=== PATIENT | male | born 1950 | race Caucasian/White ===

== ENCOUNTER → 2016-10-28 | Outpatient (CLI) | payer OTHER ==
[~2016-10-28] VITALS: Ht 172.7 cm; Wt 81.6 kg
[~2016-10-28] MED LIST: ASPIRIN EC81 M1 PO; BUPRENORPHIN-N1 EACH SL; DEMEROL50 MG PO; EFFEXOR XR75 MG PO; MEDROLDOSEPACK PO; METHADONE HCL5 MG PO; NABUMETONE 500500 M1 PO; NABUMETONE 750750 M1 PO; NAPROSYN500 MG PO; NEURONTIN 300300 M1 PO; RELAFEN500 MG PO; REQUIP5 MG PO; SUBOXONE 12 MG1 EACH SL; SUBOXONE 8 MG-1 EAC1 SL; SUBOXONE 8 MG-1 EAC2 SL; SUBOXONE 8 MG-1 EAC3 SL; Suboxone 8 Mg-2 Mg T SL
--- NOTE | ~2016-10-28 | HPC ---
[facility] [place] [address] PAIN MANAGEMENT CONSULTATION Name: SHYANN DANIELSON [facility] [id number] Admission: 10/28/16 Attend Phys: Clement Barcenas DO Discharge: Date of : 49 Report #: [id number] THIS REPORT FOR: //name// CC: TARA physician/PCP Clement Barcenas DATE OF SERVICE: 10/28/2016 The patient is a 66-year-old gentleman well known to pain clinic, typically treated for cervical radiculopathy, chronic pain syndrome, axial back pain requiring complex medication management. Comorbidities include hepatitis C. The patient was last seen in pain clinic 08/08/2016, continued on baseline medication including Suboxone 8/2 t.i.d. Last urine drug screen 04/28/2016 was positive for prescribed medication. The patient has history of hepatitis C. 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 He continues to attend NA meetings. He is not having problems with daytime somnolence, mental acuity changes, constipation, no concerning issues regarding habituation or "craving." Comorbidities include retinitis pigmentosa and a component of glaucoma. He does have 2 lesions on the right side of his face 1 pre and 1 postauricular. They are irregularly shaped, dark and actually, the postauricular lesion has a small eschar. I strongly recommend he follow up with Dermatology regarding this. PHYSICAL EXAMINATION: Otherwise relatively unchanged, a 66-year-old gentleman, BMI is 27.4 kilograms per meter squared. Blood pressure is 119/75, pulse 65, respirations are 15. Cervical range of motion is modestly limited. Upper extremity strength is symmetric and has slight positive Lhermitte's on the left. Rises from chair using armrests. Gait is tandem. Has a component of bilateral lumbar radiculopathy. We reviewed the fact that opiate medications are being used to provide analgesia adequate to support activities of daily living, not attempting to achieve a specific pain score on the 0-10 Visual Analog Scale. The current opiate medications are providing sufficient analgesia to allow the patient to participate in activities of daily living. The patient is not exhibiting any aberrant behavior suggestive of drug diversion. The patient is not having any adverse reactions to medications. The patient is not suffering from daytime somnolence or mental acuity changes. The patient is managing opiate-induced constipation with appropriate pyuq-ynm-poecush agents and dietary considerations. The patient was counseled on concern for caution with operating a motor vehicle while using opiate medications. A physical exam was performed and the patient's functional status was evaluated. [address] [address] PAIN MANAGEMENT CONSULTATION Name: SHYANN DANIELSON Cassi [facility] #: [facility] [id number] Admission: 10/28/16 Attend Phys: Clement Barcenas DO Discharge: Date of : 49 Report #: [id number] All patients with back pain were advised against the bed rest greater than 4 days and were advised to return to normal activities. Pain score assessment was noted and the treatment plan was reviewed with the patient. All current medications, both prescribed and OTC were reviewed and reconciled on the electronic medical record. Tobacco screening was accomplished and smoking cessation was advised when indicated. BMI was noted and diet/exercise modification was recommended for all patients following outside normal parameters. I reviewed with the patient today their responsibilities to safeguard prescription medications, reviewed their responsibility to utilize medications only as prescribed by the physician. They are to seek and receive pain medications only from 1 physician group ( [facility]). They are to use 1 pharmacy and keep the clinic informed if they change pharmacies. Their responsibilities include making followup visits in a timely fashion and to avoid abrupt discontinuation of medication usage. Their responsibilities further include bringing their medications (bottles from the pharmacy with residual pills) to the visit for possible confirmation of pill counts and the patient understands it is their responsibility to submit to random drug screens to ensure both that the medications prescribed are present, and that no other controlled substances are present. All prescriptions provided today were generated electronically. ASSESSMENT AND RECOMMENDATIONS: Symptomatic cervical radiculopathy, axial back pain, lumbar radiculopathy, chronic pain syndrome requiring complex medication management in a gentleman who had prior had opiate habituation concerns, he has been stable on Suboxone 8/2 t.i.d. He is attending NA meetings regularly. Was counseled regarding smoking cessation. Referred to Dermatology for concerning lesions on the right side of his head. Follow up in 3 months for reevaluation. <ELECTRONICALLY SIGNED> By: Clement Barcenas DO 10/31/16 0806 [id number] Clement Barcenas DO /nt
== END ==
LOC: PAIN 07:21
DX: M54.12 Radiculopathy, cervical region (principal); M54.16 Radiculopathy, lumbar region; G89.4 Chronic pain syndrome; H40.9 Unspecified glaucoma; B19.20 Unspecified viral hepatitis C without hepatic coma; F17.200 Nicotine dependence, unspecified, uncomplicated

== ENCOUNTER → 2017-04-27 | Outpatient (CLI) | payer OTHER ==
[~2017-04-27] VITALS: Ht 170.2 cm; Wt 76.8 kg
[~2017-04-27] MED LIST changes: +XANAX 0.5 MG0.5 M1 PO
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
[2017-04-27 10:03] VITALS: BP 130/79
== END | disposition home or self-care (01) ==
LOC: PAIN 07:01
DX: M47.26 Other spondylosis with radiculopathy, lumbar region (principal); M54.12 Radiculopathy, cervical region; G89.4 Chronic pain syndrome; Z79.899 Other long term (current) drug therapy; B19.20 Unspecified viral hepatitis C without hepatic coma; M48.06 Spinal stenosis, lumbar region; F17.290 Nicotine dependence, other tobacco product, uncomplicated

== ENCOUNTER → 2017-05-11 | Outpatient (CLI) | payer OTHER ==
[~2017-05-11] VITALS: Ht 172.7 cm; Wt 77.2 kg
[~2017-05-11] MED LIST changes: +SKELAXIN 800 M800 M1 PO; +TRAMADOL 50 MG50 MG PO
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
[2017-05-11 09:41] VITALS: BP 142/77
== END | disposition home or self-care (01) ==
LOC: PAIN 06:09
DX: Z76.0 Encounter for issue of repeat prescription (principal); G89.29 Other chronic pain; M19.042 Primary osteoarthritis, left hand; M19.041 Primary osteoarthritis, right hand; H35.52 Pigmentary retinal dystrophy; F17.210 Nicotine dependence, cigarettes, uncomplicated; Z79.891 Long term (current) use of opiate analgesic; Z88.6 Allergy status to analgesic agent; Z79.82 Long term (current) use of aspirin

== ENCOUNTER → 2017-07-28 | Outpatient (CLI) | payer OTHER ==
[~2017-07-28] VITALS: Ht 170.2 cm; Wt 76.2 kg
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
[2017-07-28 13:46] VITALS: BP 157/94
[2017-07-28 13:53] VITALS: BP 157/94
== END ==
LOC: PAIN 06:56
DX: M54.12 Radiculopathy, cervical region (principal); M15.0 Primary generalized (osteo)arthritis; Z86.69 Personal history of other diseases of the nervous system and sense organs; Z79.899 Other long term (current) drug therapy

== ENCOUNTER → 2017-10-30 | Outpatient (CLI) | payer OTHER ==
[~2017-10-30] VITALS: Ht 170.2 cm; Wt 74.6 kg
[~2017-10-30] MED LIST changes: +CELEXA20 MG PO; +LIORESAL 10 MG10 MG PO; +POTASSIUM20 PO; +VITAMIN B-12500 MCG PO
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
[2017-10-30 10:39] VITALS: BP 132/70
== END ==
LOC: PAIN 07:25
DX: M19.042 Primary osteoarthritis, left hand (principal); M19.041 Primary osteoarthritis, right hand; M17.0 Bilateral primary osteoarthritis of knee; M54.12 Radiculopathy, cervical region; G89.4 Chronic pain syndrome; Z79.899 Other long term (current) drug therapy

== ENCOUNTER → 2018-08-31 | Outpatient (CLI) | payer OTHER ==
[~2018-08-31] VITALS: Ht 172.7 cm; Wt 77.4 kg
[~2018-08-31] MED LIST changes: +MIRTAZAPINE7.5 MG PO
[2018-08-31 10:15] VITALS: BP 124/69
--- NOTE | 2018-08-31 10:22 | NUR ---
Pain Clinic Assessment: 1. History of Osteoarthritis: ALL OVER History of Rheumatoid Arthritis: Not Applicable 2. Height: 5 ft. 8 in. 172.7 cm. Weight: 170.6 lb. oz. 77.384 kg. Patient's BMI: 25.9 3. Vital Signs: BP: 124/69 Pulse: 86 Resp: 16 Temp: 02 Sat: 97 ECG Mon: 4. Pain Intensity: 8 5. Fall Risk: Dizziness: N Needs help standing or walking: N Fallen in the last 3 months: N Fall risk comments: 6. Patient on Blood Thinner: None 7. History of Hypertension: N 8. Opioid Therapy greater than 6 weeks: Y Opiate Contract Signed: 04/28/16 9. Risk Assessment Tool Provided: MOD RISK 10. Functional Assessment Tool: 58/ 11. Recreational Drug Use: Unknown Drug Type: Tobacco Use: Light Tobacco Smoker Tobacco Type: Amount or Packs/day: How Many Years: Alcohol Use: No Frequency: Quant:
--- NOTE | 2018-09-03 07:45 | HPC ---
[facility] [place] [address] PAIN MANAGEMENT CONSULTATION Name: SHYANN DANIELSON Room #: REG [facility]#: [id number] Admission: 08/31/18 Attend Phys: Gilma Munoz Discharge: Date of : 49 Report #: [id number] THIS REPORT FOR: //name// CC: Gilma Munoz [facility] physician/PCP DATE OF SERVICE: 08/31/2018 CHIEF COMPLAINT: Chronic low back pain, hand pain, neck pain. HISTORY OF PRESENT ILLNESS: This is a 68-year-old gentleman that has been followed in the pain clinic for quite some time for his chronic pain issues. The patient tells me today that he has pain in his hands, his feet, his neck, his back, his hips and his knees. Most recently, though he did have a wound on his right leg, he had been seen in urgent care and been putting ointment on it. He went back for a followup visit with about a month in between as per directed by them and they sent him to the Emergency Room in [facility]. He tells me that within 2 hours, he was in surgery due to them finding out he had an abscess that was abscess to the bone and he was in the hospital for a while on antibiotic treatment. He tells me that it is healing fine now, but he was unable due to that issue to have the vascular surgeon do their surgery on his left leg. His right leg recently had vascular surgery done on it and it is feeling better with his circulation. The patient tells me when he was in the hospital for that surgery, they had put him on OxyContin and fentanyl in place of his Suboxone and tramadol. He tells me that he feels like the Suboxone does work better and has been recently restarted on that since his discharge on . The patient tells me his pain score is an average of 6 to 8. He denies any constipation and daytime sleepiness. He also tells me that while he was in the hospital, he was started on a new antidepressant, Remeron 7.5 mg. He feels that this has been helpful and making him sleep better at night, sleeping 5-6 hours a night now and feeling not as depressed, so he was glad to have the change of the medication. He would like a refill today back on his Suboxone. CURRENT ALLERGIES: CODEINE. CURRENT MEDICATIONS: Potassium 20 mEq daily, vitamin B12 500 mcg daily, Suboxone 8/2 three times a day, baclofen 10 mg every 8 hours, tramadol 50 mg rarely use, mirtazapine 7.5 mg at bedtime and aspirin 81 mg daily. PQRS: He has a history of osteoarthritis of hips, legs, knees, back. He has degenerative joints. He denies rheumatoid arthritis. Height is 5 feet 8 inches, weight is 170, BMI is 25.9. Vital signs: Blood pressure 124/69, pulse is 86, respirations 16, oxygen sat is 97%. Pain score is 8. Risk assessment: Denies dizziness, does not need help walking or standing and has not fallen in the last 3 months. He is not on a blood thinner and does not take antihypertensive medicines. His opioid therapy is greater than 6 weeks, [address] [address] PAIN MANAGEMENT CONSULTATION Name: SHYANN DANIELSON Room #: REG AUDIE Velarde#: [id number] Admission: 08/31/18 Attend Phys: Gilma Munoz Discharge: Date of : 49 Report #: [id number] therefore, an opioid signed contract is on the chart. His risk assessment tool is moderate and his functional assessment is 58/70. Recreational drug use is unknown. He is a light tobacco smoker and does not drink alcohol. We did check the prescription monitoring system on this patient and he is filling appropriately for his narcotics from Dr. Boykin. The patient does not have a recent drug screen on the chart and we will collect a specimen today for that. PHYSICAL EXAMINATION: GENERAL: This is a well-developed, well-nourished white man who appears his stated age. He is alert and orientated. His affect is appropriate. His speech is fluent. HEENT: Normocephalic, atraumatic. Extraocular eye muscles are intact. Mucous membranes are moist. EXTREMITIES: Upper extremity strength judged to be 5/5. The patient complains of discomfort in his lower back. Lower extremity strength judged to be 5/5. Able to rise from sitting to standing without difficulty. Does have a healing scar on his right leg and 1+ edema on his left leg. The patient does walk with an antalgic gait. IMPRESSION: 1. Chronic pain involving the neck, low back, knees, hips, hands. 2. Depression. 3. Complex medical management under terms of opioid agreement. We reviewed the fact that opiate medications are being used to provide analgesia adequate to support activities of daily living, not attempting to achieve a specific pain score on the 0-10 Visual Analog Scale. The current opiate medications are providing sufficient analgesia to allow the patient to participate in activities of daily living. The patient is not exhibiting any aberrant behavior suggestive of drug diversion. The patient is not having any adverse reactions to medications. The patient is not suffering from daytime somnolence or mental acuity changes. The patient is managing opiate-induced constipation with appropriate bhuj-jiz-ljoffvx agents and dietary considerations. The patient was counseled on concern for caution with operating a motor vehicle while using opiate medications. A physical exam was performed and the patient's functional status was evaluated. All patients with back pain were advised against the bed rest greater than 4 days and were advised to return to normal activities. Pain score assessment was noted and the treatment plan was reviewed with the patient. All current medications, both prescribed and OTC were reviewed and reconciled on the electronic medical record. Tobacco screening was accomplished and smoking cessation was advised when indicated. BMI was noted and diet/exercise modification was recommended for all patients following outside normal parameters. [address] [address] PAIN MANAGEMENT CONSULTATION Name: SHYANN DANIELSON Room #: REG [facility] Raegan.#: [id number] Admission: 08/31/18 Attend Phys: Gilma Munoz Discharge: Date of : 49 Report #: [id number] I reviewed with the patient today their responsibilities to safeguard prescription medications, reviewed their responsibility to utilize medications only as prescribed by the physician. They are to seek and receive pain medications only from 1 physician group ( [facility]). They are to use 1 pharmacy and keep the clinic informed if they change pharmacies. Their responsibilities include making followup visits in a timely fashion and to avoid abrupt discontinuation of medication usage. Their responsibilities further include bringing their medications (bottles from the pharmacy with residual pills) to the visit for possible confirmation of pill counts and the patient understands it is their responsibility to submit to random drug screens to ensure both that the medications prescribed are present, and that no other controlled substances are present. All prescriptions provided today were generated electronically. PLAN: 1. We discussed treatment options with the patient today. The patient scripts given for Suboxone 03/29, #90 for today, for an 8-week release. He tells me that he rarely uses the tramadol, but does take it sometimes, it does give him a groggy feeling if taken it with his baclofen, but scripts given today for tramadol 50 mg, 100 pills for the 3 months and baclofen 10 mg 3 times a day, #90 with 2 additional refills were also given to the patient today. 2. No need for us to refill his Celexa since he has started mirtazapine 7.5 for his depression. The patient feels like it is helping better than the Celexa did and actually helping him sleep longer periods of time. We will remove that from the patient's list. 3. The patient will submit for a drug screen today. There is not one recent on his chart. He did take OxyContin and fentanyl while in the hospital, but that has been greater than a week, so that should not show up on his drug list and the patient did not receive any prescriptions upon discharge from the hospital. The patient will be seen in 3 months' time period. Today, care was given in collaboration with Dr. Gen Boykin. <ELECTRONICALLY SIGNED> By: Gilma Munoz 09/03/18 0745 1104 [id number] Gilma Munoz /nt
== END ==
LOC: PAIN 07:20
DX: M54.5 Low back pain (principal); M54.2 Cervicalgia; G89.29 Other chronic pain; M25.561 Pain in right knee; M25.562 Pain in left knee; M25.551 Pain in right hip; M25.552 Pain in left hip; M79.642 Pain in left hand; M79.641 Pain in right hand; F32.9 Major depressive disorder, single episode, unspecified; Z79.891 Long term (current) use of opiate analgesic; Z79.899 Other long term (current) drug therapy

== ENCOUNTER → 2018-11-28 | Outpatient (CLI) | payer OTHER ==
[~2018-11-28] VITALS: Ht 172.7 cm; Wt 78.0 kg
[~2018-11-28] MED LIST changes: +LASIX 40 MG TAB40 M2 PO
[2018-11-28 10:06] VITALS: BP 105/60
--- NOTE | 2018-11-28 10:11 | NUR ---
Pain Clinic Assessment: 1. History of Osteoarthritis: ALL OVER History of Rheumatoid Arthritis: Not Applicable 2. Height: 5 ft. 8 in. 172.7 cm. Weight: 172.0 lb. oz. 78.019 kg. Patient's BMI: 26.2 3. Vital Signs: BP: 105/60 Pulse: 60 Resp: 16 Temp: 02 Sat: 98 ECG Mon: 4. Pain Intensity: 8 5. Fall Risk: Dizziness: N Needs help standing or walking: N Fallen in the last 3 months: N Fall risk comments: 6. Patient on Blood Thinner: None 7. History of Hypertension: N 8. Opioid Therapy greater than 6 weeks: Y Opiate Contract Signed: 04/28/16 9. Risk Assessment Tool Provided: MOD RISK 10. Functional Assessment Tool: 58/70 11. Recreational Drug Use: Current within past 3 mos Drug Type: Tobacco Use: Former Smoker Tobacco Type: Amount or Packs/day: How Many Years: Alcohol Use: No Frequency: Quant:
--- NOTE | 2018-11-29 09:15 | HPC ---
[facility] [place] [address] PAIN MANAGEMENT CONSULTATION Name: SHYANN DANIELSON Room #: REG [facility]#: [id number] Admission: 11/28/18 ������������������ Attend Phys: Gilma Munoz Discharge: ������������������ Date of : 48 Report #: [id number] THIS REPORT FOR: //name// CC: Gilma Munoz [facility] physician/PCP DATE OF SERVICE: 11/28/2018 CHIEF COMPLAINT: Chronic low back pain, hand pain and neck pain. HISTORY OF PRESENT ILLNESS: This is a 68-year-old gentleman that has been followed in the pain clinic for quite some time for his chronic pain issues. He returns today for medication refill. He tells me that his medications are working well for his hands, feet, neck, back, generalized all over pain. He is on disability for his chronic pain issues. He tells me his pain score is 8/10 today, worse with activity, cold weather. His medications are helpful. He continues to have some wound issues on his leg that he has been seeing the wound clinic over in [place] at a doctor over there and on antibiotics continually for that. He would like a refill of his medications today. ALLERGIES: CODEINE. CURRENT MEDICATIONS: Lasix 40 mg daily, tramadol 50 mg as needed, Suboxone 8/2 three times a day, baclofen 10 mg 3 times a day, potassium 40 mEq daily and 81 mg aspirin. PQRS: 1. He has a history of osteoarthritis in his hips, legs, knees and back. He has degenerative joint disease. He denies rheumatoid arthritis. 2. Height is 5 feet 8 inches, weight is 172, BMI is 26. 3. Vital signs: Blood pressure 105/60, pulse is 60, respirations 16, oxygen sat is 98. 4. Pain score is 8/10. 5. Fall risk: Denies dizziness. Does not need help walking or standing. Has not fallen in the last 3 months. 6. The patient is not on a blood thinner, does not take medicines for hypertension. 7. Opioid therapy is greater than 6 weeks; therefore, an opioid signed contract is on the chart. 8. Risk assessment tool is moderate. His functional assessment is 58/70. 9. Recreational drug use. He tells us he currently smokes marijuana. He is a former smoker and does not drink alcohol. We checked the prescription monitoring system. The patient is filling his medications from Dr. Boykin appropriately. There is a drug screen on the chart that we ran in August, which was his last visit. This drug screen shows no [address] [address] PAIN MANAGEMENT CONSULTATION Name: SHYANN DANIELSON Room #: REG [facility].#: [id number] Admission: 11/28/18 ������������������ Attend Phys: Gilma Munoz Discharge: ������������������ Date of : 48 Report #: [id number] tramadol, no Suboxone. It does say that it is positive for marijuana and for mirtazapine. Mirtazapine, the patient was taking that medicine at that time. I did question the patient regarding this drug screen today. He tells the nurse that he smokes marijuana. The patient told me today that he uses CBD oil. I did question the patient on CBD oil, should not have high levels of marijuana, THC component in it and he said he was not sure, he got it from [place]. I explained to the patient that he is in a state of [place] where marijuana is illegal for recreational use. It will be legal soon for medical purposes, but not for recreational use. I explained to him at this time that we would be unable to either continue medications if he decided to continue his marijuana use. If he decided to stop his marijuana use, we could see him on a monthly basis to provide his Suboxone. The patient chose this option currently. PHYSICAL EXAMINATION: GENERAL: This is a well-developed, well-nourished white gentleman who appears his stated age. He is alert and orientated. His affect is appropriate. HEENT: Normocephalic, atraumatic. Extraocular eye muscles are intact. Mucous membranes are moist. EXTREMITIES: Upper extremity strength judged to be 5/5 in all major muscle groups. His tone is symmetrical. He does continue to have a wound on his right leg that is covered by a dressing. I did not visualize it today. The patient does walk with an antalgic gait. He is able to move from sitting to standing without difficulty. ASSESSMENT: 1. Chronic pain involving his neck, low back, knees, hips and hands. 2. Depression. 3. Complex medical management under terms of written opioid agreement. We reviewed the fact that opiate medications are being used to provide analgesia adequate to support activities of daily living, not attempting to achieve a specific pain score on the 0-10 Visual Analog Scale. The current opiate medications are providing sufficient analgesia to allow the patient to participate in activities of daily living. The patient is not exhibiting any aberrant behavior suggestive of drug diversion. The patient is not having any adverse reactions to medications. The patient is not suffering from daytime somnolence or mental acuity changes. The patient is managing opiate-induced constipation with appropriate twmp-jfd-wtedtzz agents and dietary considerations. The patient was counseled on concern for caution with operating a motor vehicle while using opiate medications. A physical exam was performed and the patient's functional status was evaluated. All patients with back pain were advised against the bed rest greater than 4 days and were advised to return to normal activities. Pain score assessment was noted and the treatment plan was reviewed with the patient. All current medications, both prescribed and OTC were reviewed and reconciled on the [address] [address] PAIN MANAGEMENT CONSULTATION Name: SHYANN DANIELSON Room #: REG [facility] Raegan.#: [id number] Admission: 11/28/18 ������������������ Attend Phys: Gilma Munoz Discharge: ������������������ Date of : 48 Report #: [id number] electronic medical record. Tobacco screening was accomplished and smoking cessation was advised when indicated. BMI was noted and diet/exercise modification was recommended for all patients following outside normal parameters. I reviewed with the patient today their responsibilities to safeguard prescription medications, reviewed their responsibility to utilize medications only as prescribed by the physician. They are to seek and receive pain medications only from 1 physician group ( [facility]). They are to use 1 pharmacy and keep the clinic informed if they change pharmacies. Their responsibilities include making followup visits in a timely fashion and to avoid abrupt discontinuation of medication usage. Their responsibilities further include bringing their medications (bottles from the pharmacy with residual pills) to the visit for possible confirmation of pill counts and the patient understands it is their responsibility to submit to random drug screens to ensure both that the medications prescribed are present, and that no other controlled substances are present. All prescriptions provided today were generated electronically. PLAN: 1. The patient had return for his medication refills today. As I discussed earlier about his positive drug screen, upon talking with the patient, he has decided at this time that he will not use marijuana and continue on his Suboxone. He tells me that he does not need a tramadol refill today because he finds that medicine ineffective and so we will no longer be prescribing them. I explained to the patient along with Dr. Boykin who was present for part of the meeting today that we will see him on a monthly basis for his medication refills and we will do random drug screens. The patient asked how long marijuana stays in his system and I explained to him that it varies per patient. I could not tell him exactly how long it would be in his system, but if he continues to use marijuana, then we will no longer see him for his opioid prescriptions. He would have to find another physician to write his medicines or just use his marijuana. The patient verbalizes understanding of this. He took his Suboxone script for today and made an appointment for one month time period. 2. I reminded the patient again that if the screen became positive another time then therefore he would be no longer seen in our clinic. 3. Script also given today for baclofen 10 mg #90 tablets. 4. The patient seen with Dr. Boykin who collaborated care and saw the patient today. ��������������������������������������������� <ELECTRONICALLY SIGNED> ���������������������������������������� By: Gilma Munoz ��������������������������������������������� 11/29/18 0915 [id number] [id number] Gilma Munoz /nt
== END ==
LOC: PAIN 06:50
DX: M54.5 Low back pain (principal); G89.29 Other chronic pain; M54.2 Cervicalgia; M25.562 Pain in left knee; M25.561 Pain in right knee; M25.551 Pain in right hip; M25.552 Pain in left hip; M79.642 Pain in left hand; M79.641 Pain in right hand; F32.9 Major depressive disorder, single episode, unspecified; Z88.8 Allergy status to other drugs, medicaments and biological substances; Z79.899 Other long term (current) drug therapy

== ENCOUNTER → 2018-12-26 | Outpatient (CLI) | payer OTHER ==
[~2018-12-26] VITALS: Ht 172.7 cm; Wt 76.0 kg
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
[2018-12-26 09:57] VITALS: BP 172/92
--- NOTE | 2018-12-26 10:16 | NUR ---
Pain Clinic Assessment: 1. History of Osteoarthritis: ALL OVER History of Rheumatoid Arthritis: Not Applicable 2. Height: 5 ft. 8 in. 172.7 cm. Weight: 167.6 lb. oz. 76.023 kg. Patient's BMI: 25.5 3. Vital Signs: BP: 172/92 Pulse: 89 Resp: 20 Temp: 02 Sat: 100 ECG Mon: 4. Pain Intensity: 8 5. Fall Risk: Dizziness: N Needs help standing or walking: N Fallen in the last 3 months: N Fall risk comments: 6. Patient on Blood Thinner: None 7. History of Hypertension: N 8. Opioid Therapy greater than 6 weeks: Y Opiate Contract Signed: 04/28/16 9. Risk Assessment Tool Provided: MOD RISK 10. Functional Assessment Tool: 58/70 11. Recreational Drug Use: Current within past 3 mos Drug Type: Tobacco Use: Former Smoker Tobacco Type: Amount or Packs/day: How Many Years: Alcohol Use: No Frequency: Quant:
== END ==
LOC: PAIN 07:09
DX: M19.90 Unspecified osteoarthritis, unspecified site (principal); G89.29 Other chronic pain; M54.5 Low back pain; M54.2 Cervicalgia; M25.561 Pain in right knee; M25.562 Pain in left knee; M25.551 Pain in right hip; M25.552 Pain in left hip; M79.641 Pain in right hand; M79.642 Pain in left hand; F32.9 Major depressive disorder, single episode, unspecified; Z79.891 Long term (current) use of opiate analgesic; Z79.899 Other long term (current) drug therapy